=== PATIENT | female | born 1950 | race Caucasian/White ===

== ENCOUNTER 2017-09-09 09:32 | Day surgery (SDC) | payer MEDICARE, SELFPAY ==
[2017-09-03 14:13] VITALS: BMI 25.4
[2017-09-09] VITALS (7 sets, daily range): BP systolic 101–156; BP diastolic 54–96; PULSE 79–110; RESP 16–20; TEMP 36.8–37; O2SAT 96–99
[2017-09-09 10:23] LABS: POC Glucose,Bedside 93 mg/dL (70-110)
--- NOTE | 2017-09-09 10:29 | HMH.ANESCL ---
[facility] Anesthesia Checklist - Patient Identification Patient Identification: Arm Band, Verbal (Name & ) - Structural Data Admitted From: Home Planned Operative Procedure/s: colonoscopy Consent for Planned Operative Procedure(s) Verified: Yes Verified Documents: Surgical Consent, History and Physical - NPO Status Verified Time NPO: 00:00 - Chart Verification Results Verified: CBC, BMP - Additional verifications Patient : No Anesthesia Reactions: No Hx Blood Transfusions: No Blood Transfusion Reaction: No Cephalosporin Allergy: No Previous Colonoscopy: Yes - Cardiovascular Assessment Heart Sounds: S1 & S2 Pulse Strength: Baseline Pulse Rhythm: Regular Peripheral Edema: No - Airway Assessment C-Spine Mobility Assessed: Yes TMJ Mobility Assessed: Yes Dentition: Good Dentition - Neurological Assessment Level of Consciousness: Awake, Alert, Appropriate Hx Seizures: No Numbness or tingling in extremities: No - Anesthesia Plan Anesthesia Risk discussed: Yes Anesthesia Plan: Verified ASA Class: II Anesthesia Type: MAC [facility] Anesthesia HX I have reviewed the patient's past medical history: Yes Medical History: Reports:: Anxiety, Diabetes Mellitus Type 2 (diet controlled), Hypertension Denies:: Diabetes Mellitus Type 1, Internal Pacemaker, Lung Disease, Seizures Laterality Cases: Right: ACL Repair Other Surgeries: Yes: Hernia Repair, Tubal Ligation. No: Pacemaker *Family Hx:: Unable to obtain
--- NOTE | 2017-09-09 13:18 | HMH.PROC ---
[facility] Procedure Note Procedure Note:: Colonoscopy Procedure Report: Colonoscopy Endoscopist: Gage Acosta II, MD Referring physician: Nishant Britton MD Date of Procedure: September 09, 2017 Equipment: Olympus 180 variable stiffness pediatric colonoscope Sedation: MAC sedation Indication: Mrs. Wharton is a 66-year-old female who is here for diagnostic colonoscopy. The patient did have hematochezia with both bright red and maroon blood that began on this past Saturday and she did go to the [facility]. Her hemoglobin had dropped 2 points. The patient does state that this stopped bleeding. She has had some pain in the lower abdomen. She does take a fiber bowel regimen (MiraLAX plus Konsyl). She was unable to find Konsyl for 3 or 4 months but is back on this. She reports no weight loss or family history of colon cancer. She would have constipation without the fiber bowel regimen. She had a colonoscopy in August 2009 that showed diverticulosis. She had a colonoscopy in March 2005 at which time 2 polyps (small serrated adenoma ?1/hyperplastic polyp ?1) were removed. Procedure: Prior to the procedure, a history and physical exam was performed, and patient's medications and allergies were reviewed. The risks, benefits and alternatives of the sedation and procedure were discussed with the patient. All questions were answered and informed consent was obtained. The patient was brought to the procedure room. Patient identification and proposed procedure were verified by the physician and the nurse. The patient was placed in a left lateral decubitus position and the scope was passed under direct vision. Throughout the procedure, the patient's blood pressure, pulse, and oxygen saturations were monitored continuously. The colonoscopy was accomplished without difficulty. The patient tolerated the procedure well. Findings: On digital rectal examination there was normal rectal tone. There were no external hemorrhoids. The colonoscope was introduced through the anal canal to the rectum and advanced to the cecum. The ileocecal valve and appendiceal orifice were identified. The scope was advanced a short distance into the ileum which appeared grossly normal. The scope was then withdrawn into the colon. The cecum, ascending and transverse colon and mucosa were grossly normal. There were scattered extensive diverticuli throughout the descending and sigmoid colon (LEFT colon). The rectum itself was normal. Upon retroflexion within the rectum there were grade 1 internal hemorrhoids. Impression: 1. Extensive left-sided diverticulosis 2. Grade 1 internal hemorrhoids Plan: I would resume the fiber bowel regimen (MiraLAX plus Konsyl). I do feel that she had a diverticular hemorrhage. We will discuss this. There is a 30% risk of recurrent bleeding in the future from diverticulosis. The patient will not require colonoscopy again for 10 years by ACS guidelines.
--- NOTE | 2017-09-09 13:21 | P.PCN_ITS ---
[facility] Procedure Note Procedure Note:: Colonoscopy Procedure Report: Colonoscopy Endoscopist: Gage Acosta II, MD Referring physician: Nishant Britton MD Date of Procedure: September 09, 2017 Equipment: Olympus 180 variable stiffness pediatric colonoscope Sedation: MAC sedation Indication: Mrs. Wharton is a 66-year-old female who is here for diagnostic colonoscopy. The patient did have hematochezia with both bright red and maroon blood that began on this past Saturday and she did go to the [facility]. Her hemoglobin had dropped 2 points. The patient does state that this stopped bleeding. She has had some pain in the lower abdomen. She does take a fiber bowel regimen (MiraLAX plus Konsyl). She was unable to find Konsyl for 3 or 4 months but is back on this. She reports no weight loss or family history of colon cancer. She would have constipation without the fiber bowel regimen. She had a colonoscopy in August 2009 that showed diverticulosis. She had a colonoscopy in March 2005 at which time 2 polyps (small serrated adenoma ?1/hyperplastic polyp ?1) were removed. Procedure: Prior to the procedure, a history and physical exam was performed, and patient' s medications and allergies were reviewed. The risks, benefits and alternatives of the sedation and procedure were discussed with the patient. All questions were answered and informed consent was obtained. The patient was brought to the procedure room. Patient identification and proposed procedure were verified by the physician and the nurse. The patient was placed in a left lateral decubitus position and the scope was passed under direct vision. Throughout the procedure, the patient's blood pressure, pulse, and oxygen saturations were monitored continuously. The colonoscopy was accomplished without difficulty. The patient tolerated the procedure well. Findings: On digital rectal examination there was normal rectal tone. There were no external hemorrhoids. The colonoscope was introduced through the anal canal to the rectum and advanced to the cecum. The ileocecal valve and appendiceal orifice were identified. The scope was advanced a short distance into the ileum which appeared grossly normal. The scope was then withdrawn into the colon. The cecum, ascending and transverse colon and mucosa were grossly normal. There were scattered extensive diverticuli throughout the descending and sigmoid colon (LEFT colon). The rectum itself was normal. Upon retroflexion within the rectum there were grade 1 internal hemorrhoids. Impression: 1. Extensive left-sided diverticulosis 2. Grade 1 internal hemorrhoids Plan: I would resume the fiber bowel regimen (MiraLAX plus Konsyl). I do feel that she had a diverticular hemorrhage. We will discuss this. There is a 30% risk of recurrent bleeding in the future from diverticulosis. The patient will not require colonoscopy again for 10 years by ACS guidelines.
== END 2017-09-09 14:10 | disposition home or self-care (01) ==
LOC: OUTP 09:35
PROVIDERS: Visit Provider Internal Medicine Gastroenterology
PROC: 0DJD8ZZ Inspection of Lower Intestinal Tract, Via Natural or Artificial Opening Endoscopic (ICD-10-PCS; CPT 45378; principal; 2017-09-09 12:00)
DX: Z12.11 Encounter for screening for malignant neoplasm of colon (principal); K57.30 Diverticulosis of large intestine without perforation or abscess without bleeding; K64.0 First degree hemorrhoids; E11.9 Type 2 diabetes mellitus without complications
CPT/HCPCS: G0121; 82962

== ENCOUNTER 2021-03-07 01:52 | Emergency (ER) | payer MEDICARE, SELFPAY ==
[2021-03-07 02:04] VITALS: BP 145/60; PULSE 96; RESP 18; TEMP 36.7; O2SAT 95; BMI 27.3
--- NOTE | 2021-03-07 02:09 | HMH.EDSKAF ---
ED Disposition Clinical Impression: Allergic reaction Qualifiers: Encounter type: initial encounter Qualified Code(s): T78.40XA - Allergy, unspecified, initial encounter Disposition: Home, Self-Care Condition on Discharge: Good Instructions: DI for Rash Additional Instructions: keep appt today Referrals: Nishant Britton [Primary Care Provider] - - Critical Care Critical Care Time: No Attestation: On 03/07/21, the high probability of a clinically significant, sudden or life threatening deterioration of the following system(s) required my full and direct attention, intervention and personal management. The time I documented below is in addition to time spent performing reported procedures but includes the following listed in this critical care notation. Medical Decision Making - Medical Records Medical records reviewed: Yes: I reviewed the patient's medical records. - J[place] Inquiry Pt receiving controlled substance: No Vital Signs: 03/07/21 02:04 Temperature 98.1 F Temperature Source Oral Pulse Rate [Right Brachial] 96 H Respiratory Rate 18 Blood Pressure [Right Arm] 145/60 H Blood Pressure Mean [Right Arm] 88 Blood Pressure Source [Right Arm] Automatic Cuff Blood Pressure Position [Right Arm] Sitting 02 Sat by Pulse Oximetry 95 Oxygen Delivery Method Room Air Orders (Tests/Meds): ED MEDICATIONS Discontinued Medications Generic Name Dose Route Start Last Admin Trade Name Freq PRN Reason Stop Dose Admin Dexamethasone Sodium Phosphate 8 mg 03/07/21 02:08 Dexamethasone 4mg/Ml 1ml Vial IM 03/07/21 02:09 ONCE ONE Medical Decision Narrative: prob allergic reaction Skin/Abscess/FB HPI - General Chief complaint: Allergic Reaction Stated complaint: rash on back Time Seen by Provider: 03/07/21 02:10 Mode of Arrival: Family Vehicle Source of Information: Patient, Medical Record Limitations: No Limitations Description of Symptoms (Recalled from ER Triage Doc. by RN): pt presents with upper body rash, bue rash, neck rash posterior and anterior trunk rash and it's beginning to go doen my legs . States she has an appt with pcp this morning at 9, but doesn't feel like she can wait due itching excessively - History of Present Illness HPI narrative: diffuse rash to trunk with itching over the few days - no known allergen and no covid-19 contacts - no resp sx MD complaint: rash Onset (ago): day(s) Tetanus up to date: unsure Location: generalized Severity: moderate Quality: pruritic Context: none Associated symptoms: denies other symptoms Treatments prior to arrival: other ([facility] ) - Related Data Home Medications Medication Instructions Recorded Confirmed ALPRAZolam [Xanax 0.5mg tab] 0.5 mg PO ONCE 09/03/17 09/03/17 Aspirin [Aspir 81] 81 mg PO DAILY 09/03/17 09/03/17 Levothyroxine Sodium 100 mg PO DAILY 09/03/17 09/03/17 [Levothyroxine 100mcg (0.1MG) Tab] lisinopriL [Lisinopril 10mg Tab] 10 mg PO DAILY 09/03/17 09/03/17 PARoxetine HCl [Paxil] 10 mg PO DAILY 09/09/17 09/09/17 calcium polycarbophiL [Konsyl 625 mg PO DAILY 09/09/17 09/09/17 Fiber] polyethylene glycoL 3350 [Miralax 17 gm PO DAILY 09/09/17 09/09/17 17gm Packet] Allergies Allergy/AdvReac Type Severity Reaction Status Date / Time acetaminophen [From Lortab] AdvReac Mild N/V Verified 09/03/17 14:52 amoxicillin [From Augmentin] AdvReac Mild N/V Verified 09/03/17 14:52 clavulanic acid AdvReac Mild N/V Verified 09/03/17 14:52 [From Augmentin] codeine AdvReac Mild N/V Verified 09/03/17 14:52 hydrocodone [From Lortab] AdvReac Mild N/V Verified 09/03/17 14:52 oxycodone [From Percocet] AdvReac Mild N/V Verified 09/03/17 14:52 tramadol [From Ultracet] AdvReac Mild N/V Verified 09/03/17 14:52 [facility] History - Hepatitis A Screen Drug use history?: No High risk sexual behaviors?: No History of sexually transmitted infection?: No Currently employed?: No Childcare worker?: No Do you have indoo
[2021-03-07 02:27] VITALS: BP 110/67; PULSE 78; RESP 18; TEMP 36.7; O2SAT 97
== END 2021-03-07 02:30 | disposition home or self-care (01) ==
PROVIDERS: Emergency Provider Emergency Medicine; PCP Family Medicine
DX: T78.40XA Allergy, unspecified, initial encounter (principal); E11.9 Type 2 diabetes mellitus without complications; I10 Essential (primary) hypertension; Z88.5 Allergy status to narcotic agent; Z79.899 Other long term (current) drug therapy
CPT/HCPCS: 96372; 99281

== ENCOUNTER 2024-10-22 08:02 | Day surgery (SDC) | payer MEDICARE, SELFPAY ==
[2024-10-21 10:43] VITALS: BMI 26.9
[2024-10-22 08:05] VITALS: BP 128/54; PULSE 87; RESP 18; TEMP 36.8; O2SAT 95
[2024-10-22 08:27] LABS: POC Glucose,Bedside 134 (70-110)
[2024-10-22] MEDS: LACTATED RINGERS 1000ML 1,000 ML 50 ML IV (08:31)
--- NOTE | 2024-10-22 08:39 | EXP.ANES.CKL ---
[facility] Disclaimer: The information contained in this section may have been updated after the patient was seen, as this information can be updated by other users. Medical History Basal cell carcinoma Hypothyroidism Hyperlipidemia Hypertension Diabetes Surgical History H/O: hysterectomy H/O hemorrhoidectomy H/O tubal ligation Family History Father Afib Mother Atrophic fibrosis of lung Social History Smoking Status: Never smoker alcohol intake: never substance use type: denies use current occupational status: retired Travel in the last 8 weeks?: None caffeine: Yes [facility] Anesthesia Checklist Patient Identification Patient Identification: Arm Band Structural Data Admitted From: Home Planned Operative Procedure/s: Flexible Sigmoidoscopy Consent for Planned Operative Procedure(s) Verified: Yes Verified Documents: Surgical Consent and History and Physical NPO Status Verified Time NPO: 03:00 (finished prep) Additional verifications Anesthesia Reactions: No Hx Blood Transfusions: No Blood Transfusion Reaction: No Airway Assessment Mallampati Score:: Class II C-Spine Mobility Assessed: Yes TMJ Mobility Assessed: Yes Dentition: Good Dentition Neurological Assessment Level of Consciousness: Awake, Alert and Appropriate Anesthesia Plan Anesthesia Risk discussed: Yes Anesthesia Plan: Verified ASA Class: II Anesthesia Type: MAC
[2024-10-22 08:44] VITALS: O2SAT 99
--- NOTE | 2024-10-22 08:48 | P.HP_ITS ---
History of Present Illness *Admission Date: 10/22/24 *Reason for visit:: Prolapsing internal hemorrhoids *History of present illness: Mrs. Wharton is a 74-year-old female who is here for therapeutic sigmoidoscopy with possible hemorrhoid band ligation secondary to prolapsing internal hemorrh oids. The examination is deemed medically necessary for sigmoidoscopy with banding. The patient has been seen, interviewed and examined prior to the procedure by both myself and the anesthesia provider. [facility] Disclaimer: The information contained in this section may have been updated after the patient was seen, as this information can be updated by other users. Medical History Basal cell carcinoma Hypothyroidism Hyperlipidemia Hypertension Diabetes Surgical History H/O: hysterectomy H/O hemorrhoidectomy H/O tubal ligation Family History Father Afib Mother Atrophic fibrosis of lung Social History (Updated 10/22/24 @ 08:39 by David Lara CRNA) Smoking Status: Never smoker alcohol intake: never substance use type: denies use current occupational status: retired Travel in the last 8 weeks?: None caffeine: Yes Have you lived/traveled outside [place] in past 30 days?: No Contact w/someone who lives/traveled outside US past 30 days?: No Exposure to someone with infectious disease in past 14 days?: No Do you have a fever (greater than 100.4 F or 38 C)?: No Have you tested positive for COVID-19?: No Exposed to someone with COVID-19 in past 14 days?: No Do you have a sore throat?: No Do you have a cough?: No Do you have any weakness?: No Are you experiencing any nausea/vomitting?: No Do you have any diarrhea?: No Are you experiencing any unusual bleeding?: No Do you have any muscle aches/pain?: No Do you have any abdominal pain?: No Are you experiencing loss of taste or smell?: No Other Medical History Have you received the Flu Vaccine for this season: No Have you received the Pneumonia Vaccine: Yes Review of Systems Review of Systems Review of systems (narrative): Negative *Cardiovascular Comments: Negative *Gastrointestinal Comments: Negative *Genitourinary Comments: Negative *Musculoskeletal Comments: Negative *Neurologic Comments: Negative Meds Home Medications and Allergies Home Medications ?Medication ?Instructions ?Recorded ?Confirmed ?Type alprazolam 0.5 mg tablet 0.5 mg PO ONCE sleep 09/03/17 10/22/24 History lisinopril 10 mg tablet 10 mg PO DAILY blood pressure 09/03/17 10/22/24 History calcium polycarbophil 625 mg 625 mg PO DAILY consttipation 09/09/17 10/22/24 History tablet (Konsyl Fiber) polyethylene glycol 3350 17 gram 17 g PO DAILY constipation 09/09/17 10/22/24 History oral powder packet (Miralax) levothyroxine 88 mcg tablet 88 mcg PO DAILY 04/13/24 10/22/24 History (Synthroid) paroxetine HCl 20 mg tablet 20 mg PO DAILY 04/13/24 10/22/24 History pravastatin 40 mg tablet 40 mg PO DAILY 04/13/24 10/22/24 History peg 3350-electrolytes 236 240 ml PO Q10M colonscopy #4,000 mL 07/14/24 10/22/24 Rx gram-22.74 gram-6.74 gram-5.86 gram solution (Golytely) metformin 500 mg tablet,extended 500 mg PO BID 10/12/24 10/22/24 History release 24 hr New Prescriptions to Start Prescriptions: Allergies Allergy/AdvReac Type Severity Reaction Status Date / Time acetaminophen (From Lortab) AdvReac Mild N/V Verified 10/22/24 08:11 amoxicillin (From Augmentin) AdvReac Mild N/V Verified 10/22/24 08:11 clavulanic acid (From AdvReac Mild N/V Verified 10/22/24 08:11 Augmentin) codeine AdvReac Mild N/V Verified 10/22/24 08:11 hydrocodone (From Lortab) AdvReac Mild N/V Verified 10/22/24 08:11 oxycodone (From Percocet) AdvReac Mild N/V Verified 10/22/24 08:11 tramadol (From Ultracet) AdvReac Mild N/V Verified 10/22/24 08:11 Exam Data for Last 24 hours Vital signs and Labs for Last 24 Hours: Temp Pulse Resp BP Pulse Ox O2 Del Method O2 Flow Rate 98.3 F 87 18 128/54 L 95 Nasal Cannula 5 10/22/24 08:05 10/22/24 08:05 10/22/24 08:05 10/22/24 08:05 10/22/24 08:05 10/22/24 08:44 10/22/24 08:44 Laboratory Results - last 24 hr 10/22/24 08:18: POC Glucose 134 H I & O for Last 24 hours: Intake & Output 10/19/24 10/20/24 10/21/24 10/22/24 23:59 23:59 23:59 23:59 Weight 138 lb *Routine HEENT Exam Head: Present normocephalic Eye: Present EOMI and PERRL ENT: Present mucous membranes moist *Routine Neck Exam Neck: Present supple *Routine Respiratory Exam Respiratory: Present CTA bilaterally *Routine Cardiovascular Exam Cardiovascular: Present RRR *Routine Abdominal Exam Abdominal: Present soft and normoactive bowel sounds; Absent tenderness *Routine Rectal Exam Rectal:: deferred *Routine Genitalia Exam Genitalia:: deferred *Routine Extremities Exam Extremities: Absent cyanosis, clubbing or edema *Routine Skin Exam Skin: Present warm; Absent rash *Routine Neurological Exam Neurological: Present alert and oriented X3 Assessment and Plan *Assessment and plan (1) Prolapsed internal hemorrhoids, grade 3: Status: Acute Category: Medical Code(s): K64.2 - Third degree hemorrhoids Plan A/P: 1. Prolapsing internal hemorrhoids (grade 3) is the preprocedural diagnosis. The patient will be anesthetized/sedated using MAC sedation. The patient has been seen and examined. Cardiac and lung assessment prior to the examination is stable. Proceed with planned sigmoidoscopy with hemorrhoid band ligation.
--- NOTE | 2024-10-22 08:50 | HMH.PROCNOTE ---
[facility] Procedure Note Date: 10/22/24 Time: 08:59 Procedure Note:: Flexible Sigmoidoscopy Procedure Report: Sigmoidoscopy with hemorrhoid band ligation Endoscopist: Gage Acosta II, MD Referring physician: Nishant Britton MD, [address] [place] [id number] Date of Procedure: October 22, 2024 Equipment: Olympus 180 variable stiffness pediatric colonoscope Sedation: MAC sedation Indication: Mrs. Wharton is a 74-year-old female who is here for sigmoidoscopy secondary to prolapsing internal hemorrhoid. This often occurs when she strains or bears down with a bowel movement and she will manually have to reduce the hemorrhoid. The patient did have hemorrhoid banding in 2021 at time of colonoscopy. She is on combined fiber bowel regimen (MiraLAX plus Konsyl) and recently had her first visit with pelvic floor physical therapy. The patient rarely has bright red rectal bleeding from the internal hemorrhoids but 1 day had some blood in the commode. She infrequently will have a smear of blood on the toilet tissue. The patient does have some smoldering sigmoid diverticulitis. Procedure: Prior to the procedure, a history and physical exam was performed, and patient's medications and allergies were reviewed. The risks, benefits and alternatives of the sedation and procedure were discussed with the patient. All questions were answered and informed consent was obtained. The patient was brought to the procedure room. Patient identification and proposed procedure were verified by the physician and the nurse. The patient was placed in a left lateral decubitus position and the scope was passed under direct vision. Throughout the procedure, the patient's blood pressure, pulse, and oxygen saturations were monitored continuously. The colonoscopy was accomplished without difficulty. The patient tolerated the procedure well. Findings: On digital rectal examination there was normal rectal tone. There was a anterior rectocele. There were no anal fissures. The scope was then inserted through the anal canal to the rectum and advanced to 45 cm from the anal verge. There were scattered diverticula throughout the sigmoid colon. The rectosigmoid and rectum were normal. Upon retroflexion there was a larger venous column/grade 3 internal hemorrhoid. Based upon the size, this was banded x 2 with excellent ligation effect. Impression: 1. Grade 3 internal hemorrhoid columns?status post band ligation 2. Left-sided diverticulosis 3. Anterior rectocele Plan: I would recommend that she continue the fiber bowel regimen and pelvic floor physical therapy.
[2024-10-22 09:09] VITALS: BP 82/45; PULSE 73; RESP 16; TEMP 36.6; O2SAT 92
[2024-10-22 09:19] VITALS: BP 90/48; PULSE 73; RESP 16; O2SAT 94
[2024-10-22 09:29] VITALS: BP 102/60; PULSE 72; RESP 16; O2SAT 95
[2024-10-22 09:39] VITALS: BP 112/71; PULSE 74; RESP 16; O2SAT 94
== END 2024-10-22 10:05 | disposition home or self-care (01) ==
PROVIDERS: PCP Family Medicine; Visit Provider Internal Medicine Gastroenterology
PROC: 0DJD8ZZ Inspection of Lower Intestinal Tract, Via Natural or Artificial Opening Endoscopic (ICD-10-PCS; CPT 45330; principal; 2024-10-22 09:30)
DX: K64.2 Third degree hemorrhoids (principal); N81.6 Rectocele; K57.30 Diverticulosis of large intestine without perforation or abscess without bleeding; E11.9 Type 2 diabetes mellitus without complications
CPT/HCPCS: 45350; 82962; C1889; J7120